=== PATIENT | female | born 1985 | race Two or more races ===

== ENCOUNTER 2024-08-05 18:33 | Emergency (ER) | payer MEDICAID ==
[~2024-08-05] VITALS: Ht 160 cm; Wt 77.1 kg
[2024-08-05 18:38] VITALS: BP 140/78; TEMP 98.2; O2SAT 98
[2024-08-05] MEDS ORDERED: ONDANSETRON 4 MG TAB.RAPDIS ONE (20:16)
[2024-08-05] MEDS ORDERED: IBUPROFEN 600 MG TABLET ONE (20:16)
[2024-08-05] MEDS: IBUPROFEN 600 MG TABLET PO ONE (20:19)
[2024-08-05] MEDS: ONDANSETRON 4 MG TAB.RAPDIS SL ONE (20:20)
== END 2024-08-05 20:58 | disposition home or self-care (01) ==
LOC: ER 18:35
DX: S13.4XXA Sprain of ligaments of cervical spine, initial encounter (principal); M79.605 Pain in left leg; V43.02XA Car driver injured in collision with other type car in nontraffic accident, initial encounter; Y93.89 Activity, other specified; Y92.411 Interstate highway as the place of occurrence of the external cause; Y99.8 Other external cause status
CPT/HCPCS: 99283; 73590; Q0162